=== PATIENT | male | born 2005 | race Hispanic/Latino ===

== ENCOUNTER 2024-05-06 01:49 | Emergency (ER) | payer OTHER ==
[~2024-05-06] VITALS: Ht 165.1 cm; Wt 79.4 kg
[2024-05-06] MEDS: KETOROLAC 30 MG/ML 1ML VIAL IV ONE (07:49)
[2024-05-06 08:02] LABS: BASO # 0.1 10^3/uL (0.0-0.2); BASO % 0.6 % (0.0-1.0); EOS # 0.2 10^3/uL (0.0-0.5); EOS % 2.1 % (0.0-3.0); HEMATOCRIT 43.2 % (42.0-52.0); HEMOGLOBIN 14.4 g/dl (13.5-17.5); LYMPH # 3.5 10^3/uL (1.5-5.0); LYMPH % 43.1 % (24.0-44.0); MEAN CORPUSCULAR HEMOGLOBIN 28.2 pg (27.0-33.0); MEAN CORPUSCULAR HGB CONC 33.3 g/dl (32.0-36.5); MEAN CORPUSCULAR VOLUME 84.7 fl (80.0-96.0); MONO # 0.7 10^3/uL (0.0-0.8); MONO % 8.4 % (2.0-8.0); NEUTROPHILS # 3.7 10^3/uL (1.5-8.5); NEUTROPHILS % 45.7 % (36.0-66.0); PLATELET COUNT, AUTOMATED 309 10^3/uL (150-450); WHITE BLOOD COUNT 8.2 10^3/uL (4.0-10.0)
[2024-05-06 08:11] LABS: LIPASE 224 U/L (12-53)
[2024-05-06 08:13] LABS: ALBUMIN 4.2 G/DL (3.2-5.2); ALKALINE PHOSPHATASE 132 U/L (40-129); ALT/SGPT 23 U/L (7.0-40); AST/SGOT 16 U/L (<34); BILIRUBIN,DIRECT 0.1 MG/DL (<0.4); BILIRUBIN,TOTAL 0.4 MG/DL (0.3-1.2); BLOOD UREA NITROGEN 14 MG/DL (9-23); CALCIUM LEVEL 9.5 MG/DL (8.5-10.1); CARBON DIOXIDE LEVEL 28 MMOL/L (20-31); CHLORIDE LEVEL 106 MMOL/L (98-107); CREATININE FOR GFR 0.73 MG/DL (0.70-1.30); GLUCOSE, FASTING 78 MG/DL (60-100); POTASSIUM SERUM 4.4 MMOL/L (3.5-5.1); SODIUM LEVEL 143 MMOL/L (136-145); TOTAL PROTEIN 7.5 G/DL (5.7-8.2)
[2024-05-06] MEDS ORDERED: ISOVUE-370 76% 100ML VIAL As Ordered ONE (08:15)
[2024-05-06] MEDS ORDERED: ONDA-282 PO (10:17)
[2024-05-06 10:37] VITALS: BP 120/59; TEMP 96.8; O2SAT 100
== END 2024-05-06 10:40 | disposition home or self-care (01) ==
LOC: M ED 01:49
DX: R11.2 Nausea with vomiting, unspecified (principal); R10.31 Right lower quadrant pain; R74.8 Abnormal levels of other serum enzymes; Z79.899 Other long term (current) drug therapy
CPT/HCPCS: 74177; 80048; 80076; 83690; 85025; 96374; 99284; J1885; Q9967